=== PATIENT | female | born 1980 | race Caucasian/White ===

== ENCOUNTER → 2019-01-14 | Day surgery (SDC) | payer OTHER ==
--- NOTE | 2019-01-14 11:10 | RAD REPORT ---
EXAM DESCRIPTION: US - Guided FNA Non Breast - 01/14/2019 10:41 am CLINICAL HISTORY: ^E04.1 COMPARISON: Ultrasound December 24, 2018 TECHNIQUE: Patient presents for ultrasound-guided FNA of previously detailed 20 x 10 mm anterior rig ht lobe thyroid nodule. The FNA procedure, risks and alternatives were discussed with the patient in detail. After answering all questions, both oral and written consent were obtained. Time out procedur e was performed. Patient had no contraindicated allergy or medication history. Anterior right neck was prepped and draped in the usual sterile fashion. Under sonographic guidance s kin and deeper tissues were anesthetized with 1% lidocaine. Using ultrasound guidance a 25 gauge need le was advanced into the nodule. Multiple to and fro excursions of the needle tip performed. Aspirati on procedure was repeated with sonographic guidance 3 additional times. All obtained material was giv en to pathology for cytology/ histology assessment. At the conclusion of the procedure a bandage was placed at the puncture site. Postprocedure imaging showed no hematoma in the soft tissues. Postproced ure care and precaution instructions were given to the patient. IMPRESSION: Ultrasound-guided FNA of the 20 x 10 mm right thyroid nodule performed as detailed.
== END ==
LOC: FNA 09:58
PROVIDERS: ATTEND Specialist
PROC: 0G9H3ZX Drainage of Right Thyroid Gland Lobe, Percutaneous Approach, Diagnostic (ICD-10-PCS; principal; 2019-01-14)
DX: E04.1 Nontoxic single thyroid nodule (principal)
CPT/HCPCS: 88162

== ENCOUNTER 2019-02-20 23:31 | Inpatient (IN) | payer OTHER ==
[2019-02-20] MEDS ORDERED: OXYTOCIN/LR 20 UNIT/1,000 ML BAG IV SCH (23:45)
[2019-02-20] MEDS ORDERED: Ringers Lactate 1,000 ML IV SCH (23:45)
[2019-02-20] MEDS ORDERED: MIDAZOLAM HCL 2 MG/2 ML INJ IV PRN (23:56)
[2019-02-20] MEDS ORDERED: Ringers Lactate 1,000 ML IV PRN (23:56)
[2019-02-20] MEDS ORDERED: PROMETHAZINE 25 MG/ML VIAL IV PRN (23:56)
[2019-02-20] MEDS ORDERED: BUTORPHANOL 1 MG/ML INJ IV PRN (23:56)
[2019-02-20] MEDS ORDERED: MEPERIDINE HCL 25 MG/0.5 ML IV PRN (23:56)
[2019-02-20] MEDS ORDERED: METHYLERGONOVINE 0.2MG/ML AMP IM PRN (23:56)
[2019-02-20] MEDS ORDERED: CARBOPROST TROME 250 MCG/ML IM PRN (23:56)
[2019-02-21] MEDS ORDERED: PENICILLIN 5 MU in NA CHLORIDE 0.9% 100 ML IV ONE ×2
[2019-02-21 00:46] LABS: Absolute Lymphocytes (CBC) 2.1 K/uL (0.7-4.9); Basophils % 0.4 % (0-1.3); Lymphocytes % 21.9 % (15.3-44.8); MPV 9.2 fL (7.6-11.3); RBC Red Blood Cell Count 4.14 M/uL (3.86-4.86)
[2019-02-21 01:04] LABS: Urine Appearance CLEAR; Urine Bilirubin NEGATIVE (NEG); Urine Blood NEGATIVE (NEG); Urine Color YELLOW; Urine Glucose NEGATIVE (NEG); Urine Protein NEGATIVE (NEG); Urine Specific Gravity <=1.005 (1.005-1.030); Urine Urobilinogen 0.2 mg/dL (0.2-1.0)
[2019-02-21 01:11] LABS: Urine Microscopic Reflex ORDER UMIC
[2019-02-21 02:34] VITALS: BMI 26.9
[2019-02-21] MEDS ORDERED: LIDOCAINE 1% MPF 30 ML VIAL SQ ONE (02:40)
[2019-02-21 02:52] LABS: Urine Amorphous Sediment 2+ /HPF (NONE SEEN); Urine Bacteria <20 /HPF (<20); Urine Culture Reflex Order REFLEXED; Urine RBC <5 /HPF (NONE SEEN)
[2019-02-21] MEDS ORDERED: ONDANSETRON 4 MG (ODT) TAB PO PRN (03:22)
[2019-02-21] MEDS ORDERED: METHYLERGONOVINE 0.2MG/ML AMP IM PRN (03:22)
[2019-02-21] MEDS ORDERED: Oxycodone HCl/Acetaminophen 1 TAB TAB PO PRN (03:22)
[2019-02-21] MEDS ORDERED: METHYLERGONOVINE 0.2 MG TAB PO PRN (03:22)
[2019-02-21] MEDS ORDERED: CARBOPROST TROME 250 MCG/ML IM PRN (03:22)
[2019-02-21] MEDS ORDERED: IBUPROFEN 200 MG TAB PO ONE (03:33)
--- NOTE | 2019-02-21 03:58 | P.BOP ---
Preoperative diagnosis: term , active labor Postoperative diagnosis: same, viable male Primary procedure: SCVD male Secondary procedure: repair 2 degree perineal laceration, local infiltration anesthesia Estimated blood loss: Less than 400ml Anesthesia: Local Complications: None Transferred to: Other ([id number]) Condition: Good
[2019-02-21] MEDS ORDERED: OXYTOCIN/LR 20 UNIT/1,000 ML BAG IV SCH (04:00)
[2019-02-21] MEDS ORDERED: PENICILLIN 2.5 MU in NA CHLORIDE 0.9% 100 ML IV SCH (04:00)
[2019-02-21] MEDS ORDERED: METHYLERGONOVINE 0.2MG/ML AMP IM ONE (04:23)
[2019-02-21] MEDS: IBUPROFEN 200 MG TAB PO PRN ×3 (08:30→21:18)
--- NOTE | 2019-02-21 20:29 | OP ---
Surgeon: Chilango Gunter MD Delivery Note: Ms. Mcgovern is a 38-year-old female, 5, para 4-0-0-4 at aptty roximately 38 weeks gestation. She is admitted in early labor, noted to be 4 cm dilated. She receiv ed 1 dose of penicillin for prophylaxis for beta strep bacteria for known carriage. Approximately 3- 1/2 hours after the first dose, she was noted to be 9+ cm. Rupture of membranes was performed. She rapidly delivered a 7-pound 4-ounce male , 9 and 10 over a midline second-degree perineal laceration. Cord was milked toward the infant, clamped, cut, and placed on mother's upper ab domen. Cord blood was obtained. The placenta was spontaneously expelled and appeared to be intact b ecause of mild atony. She received 1 dose of methargen because of mild atony, rapid labor and grand multiparity now. Laceration was repaired in the usual fashion with local infiltration with xylocaine and 3-0 Vicryl suture. The patient tolerated all procedures well, received no analgesia during her labor course. Estimated total blood loss was less than 400 cc. DAVONTE/JENNIFER Voice ID: [id number] Report ID: [id number]
[2019-02-21 22:11] LABS: RPR (Rapid Plasma Reagin) NON-REACT (NON-REACT)
[2019-02-22] MEDS: IBUPROFEN 200 MG TAB PO PRN ×3 (04:25→16:43)
--- NOTE | 2019-02-22 10:13 | PREOPHP ---
Date of Admission: 02/20/2019 History Of Present Illness: Ms. Mcgovern is a 38-year-old female, 5, para 4-0-0-4 at approximately 37+ weeks gestation. She has been followed by me since transfer of care at approximately 28 weeks gestation with advanced maternal age, mild anemia, right thyroid nodule, and now positive beta strep carriage. She noticed increasing contractions over the last couple of days, presents to Labor and Delivery, noted to be 4 cm dilated. Past Medical History: Please see record. Family History: Please see record. Review of Systems: She reports no recent cough, cold, fevers, or chills. No recent nausea or vomiting. She denies any breast lumps. Infant has been active. Abdomen shows approximately 7+ pound . Cervix as above. Extremities; trace lower extremity edema. Physical exam: HEENT-negative Lungs clear Heart-Regular rate and rythym Abdomen-term preganancy Pelvic-cx rcm dilated Extremities-trace edeema Impression: 38 week , active labor, advanced maternal age, thyroid nodule, positive beta strep. Plan: Patient will be admitted. We will administer penicillin prophylaxis. DAVONTE/JENNIFER Voice ID: [id number] MARGOT
[2019-02-22 17:52] VITALS: BP 124/82; TEMP 98.2
--- NOTE | 2019-02-23 08:38 | DS ---
Date of Discharge: 02/22/2019 Final Hospital Discharge Diagnosis: 38 week , delivered. Complications: ABO incompatibility with hyperbilirubinemia in . Procedures: Artificial rupture of membranes, spontaneous controlled vaginal delivery of viable male infant, repair of second-degree perineal laceration, local infiltration of anesthesia. Hospital Course: Patient is a 38-year-old female, 5, para 4-0-0-4 at 38 we eks gestation, admitted in active labor. She was prophylaxed with penicillin for beta strep carriage . Was dismissed on the first day, ambulatory, on a select diet with routine post vaginal delivery activity restrictions, take Tylenol or ibuprofen for pain relief because 2 prior infants had ABO incompatibility with hyperbilirubinemia. This also had this until the infant stayed for phototherapy. Lab work included admission hemoglobin of 12.4, dismissal hematocrit of 31. She was d ismissed to continue taking her iron and vitamins, to be seen back in my office in 1 week pe riod of time. DAVONTE/JENNIFER Voice ID: [id number] Report ID: [id number]
[2019-02-24 19:43] LABS: HBsAG Nonreactive (Nonreactive)
== END 2019-02-22 20:15 | disposition home or self-care (01) | DRG 807 ==
LOC: L&D 23:31 → 2ND-WC 23:53
PROVIDERS: ADMIT Specialist; ATTEND Specialist
PROC: 10E0XZZ Delivery of Products of Conception, External Approach (ICD-10-PCS; principal; 2019-02-21)
PROC: 0KQM0ZZ Repair Perineum Muscle, Open Approach (ICD-10-PCS; 2019-02-21)
PROC: 10907ZC Drainage of Amniotic Fluid, Therapeutic from Products of Conception, Via Natural or Artificial Opening (ICD-10-PCS; 2019-02-21)
DX: O70.1 Second degree perineal laceration during delivery (principal); Z37.0 Single live birth; O99.824 Streptococcus B carrier state complicating childbirth; O62.2 Other uterine inertia; O99.284 Endocrine, nutritional and metabolic diseases complicating childbirth; E07.89 Other specified disorders of thyroid; O99.02 Anemia complicating childbirth; D64.9 Anemia, unspecified; Z3A.38 38 weeks gestation of pregnancy
CPT/HCPCS: 36415; 81003; 81015; 85014; 85025; 86592; 86850; 86900; 86901; 87077; 87086; 87088; 87186; 87340; J2210; J2590

== ENCOUNTER → 2019-05-25 | Day surgery (SDC) | payer OTHER ==
--- NOTE | 2019-05-25 11:02 | RAD REPORT ---
EXAM DESCRIPTION: US - Guided FNA Non Breast - 05/25/2019 10:40 am CLINICAL HISTORY: E04.1 COMPARISON: Guided FNA Non Breast dated 01/14/2019; Thyroid Para Parotid Gland dated 12/24/2018 FINDINGS: Preoperative diagnosis: Right thyroid nodule. Post operative diagnosis: Same. Conscious Sedation: None Fluoroscopy time: None Contrast used: None Estimated blood loss: Minimal Specimens:25 gauge FNA samples x5 The right neck was prepped and draped in the usual sterile fashion. 1% lidocaine was infiltrated into the subcutaneous tissues for local anesthesia. Real time ultrasound scanning of the right neck demon strated 2 cm anteriorly located hypoechoic nodule. Under ultrasound guidance, using multiple 25 gauge FNA needles, 5 specimens were obtained of this lesion and sent to pathology for evaluation. There we re no complications. IMPRESSION: Successful ultrasound-guided right thyroid nodule FNA procedure.
== END ==
LOC: RAD 09:42
PROVIDERS: ATTEND Otolaryngology
PROC: 0G9H3ZX Drainage of Right Thyroid Gland Lobe, Percutaneous Approach, Diagnostic (ICD-10-PCS; principal; 2019-05-25)
DX: E04.1 Nontoxic single thyroid nodule (principal)
CPT/HCPCS: 88161; 88162